=== PATIENT | female | born 1995 | race Caucasian/White ===

== ENCOUNTER 2016-04-29 12:13 | Emergency (ER) | payer MEDICAID ==
[2016-04-29] MEDS ORDERED: IPRATROPIUM/ALBUTEROL 3 ML DEYVIAL IH ONE (12:47)
[2016-04-29] MEDS ORDERED: predniSONE 20 MG TAB PO ONE (12:47)
--- NOTE | 2016-04-29 12:48 | EDPHY ---
H & P Stated Complaint: URI sxs for 3+weeks Source: Patient Exam Limitations: No limitations - Personal History LMP (Females 10-55): Extended Cycle BCP/Inj Current Tetanus Diphtheria and Acellular Pertussis (TDAP): Yes - Medical/Surgical History Hx Asthma: No Hx Chronic Respiratory Disease: No Hx Diabetes: No Hx Cardiac Disease: No Hx Renal Disease: No Hx Cirrhosis: No Hx Alcoholism: No Hx HIV/AIDS: No Hx Splenectomy or Spleen Trauma: No Other PMH: DENIES. - Family History Significant Family History: No pertinent family hx - Social History Smoking Status: Current some day smoker Alcohol Use: Occasionally Drug Use: Marijuana Time Seen by Provider: 04/29/16 12:47 HPI/ROS: HPI: 20-year-old female presents to emergency department with chief concern worsening cough x3 weeks. Onset with cough and rhinorrhea. Reports intermittent shortness of breath. May have had a fever at onset. No fever now. Denies dizziness, facial or tooth pain, sore throat, dysphagia, chest pain, abdominal pain, nausea, vomiting, diarrhea. No aggravating or alleviating factors. No history of asthma or pneumonia. Occasional tobacco use. Occasional marijuana use. Denies significant past medical history. She is a student at [employer]. ROS:10 point review of systems is negative other than as stated in HPI (Iram Suárez) - Social History Additional Social History: [employer] student (Iram Suárez) - Physical Exam Exam: Vital signs stable, reviewed by me, 95% on room air General: Awake, alert, calm, cooperative. No acute distress. Head: Atraumatic. EENT: Conjuctiva mildly injected. TMs intact, without redness or bulging. Nasal mucosa is erythematous with moderate clear discharge. Pharynx mildly erythematous. Uvula midline. No tonsillar abscess or exudates. No frontal or maxillary tenderness to percussion. Respiratory: Breathing unlabored. Lungs with scattered rhonchi and inspiratory and expiratory wheezes bilaterally. CV: Heart rate regular. S1-S2 present. No murmur. GI: Abdomen soft, nontender. Bowel sounds positive x4 quadrants. : Deferred Skin: Warm, dry, intact. No rashes present. Capillary refill brisk. Musculoskeletal: Full ROM all extremities. Neuro: Alert oriented x3. Strength equal in all 4 extremities. (Iram Suárez) Constitutional: Initial Vital Signs Temperature (C) 36.6 C 04/29/16 12:15 Heart Rate 84 04/29/16 12:15 Respiratory Rate 16 04/29/16 12:15 Blood Pressure 108/67 04/29/16 12:15 O2 Sat (%) 95 04/29/16 12:15 O2 Delivery Mode Room Air Allergies/Adverse Reactions: No Known Allergies Allergy (Verified 04/29/16 12:14) Home Medications: Medication Instructions Recorded Depo-Provera 01/20/16 Albuterol Hfa Anes Only [Proair 2 puffs IH QID PRN #1 mdi 04/29/16 Hfa Anes Only] Azithromycin [Zithromax] 250 mg PO DAILY #6 tab 04/29/16 predniSONE 20 mg PO DAILY #15 tablet 04/29/16 Medical Decision Making ED Course/Re-evaluation: Otherwise healthy nontoxic afebrile 20-year-old female presents to emergency department with a worsening cough over 3 weeks. At onset of cough, reports rhinorrhea and fever. Has not had a fever for at least a week. Has intermittent shortness of breath. Lungs are notable for rhonchi and inspiratory and expiratory wheezes. She has no history of asthma or reactive airway disease. Will give a DuoNeb, a prednisone taper, albuterol inhaler, and treat with a course of azithromycin. I will not perform a chest x-ray today as it will not alter my treatment plan. She is a [employer] student however [facility] is not part of her plan so I will have her follow up with primary care as directed in her paperwork. Agrees to do so. She has been counseled regarding symptoms for which she should return. After a DuoNeb wheezes significantly improved, oxygen saturation 97% on room air , patient feeling better. Received 1st dose oral prednisone here. (Iram Suárez) I did not see this patient while she was in the emergency department. However her care was discussed with the nurse practitioner while the patient was in the department. I agree with treatment plan and management (Obdulio Delcid) Differential Diagnosis: Differential diagnosis includes but is not limited to bronchitis, pneumonia, reactive airway disease, asthma (Iram Suárez) - Data Points Medications Given: Discontinued Medications Albuterol/Ipratropium (Duoneb) 3 ml IH EDNOW ONE Stop: 04/29/16 12:48 Last Admin: 04/29/16 13:02 Dose: 3 ml Prednisone (Prednisone) 60 mg PO EDNOW ONE Stop: 04/29/16 12:48 Last Admin: 04/29/16 13:02 Dose: 60 mg Departure - Departure Disposition: Home, Routine, Self-Care Clinical Impression: Bronchitis, Reactive airway disease Condition: Good Instructions: Albuterol (By mouth), Prednisone (By mouth), Acute Bronchitis (ED ), Reactive Airways Disease (ED) Additional Instructions: Plan: Refrain from smoking while symptoms persist Antibiotic as prescribed Use your albuterol inhaler 2 puffs every 4-6 hours for shortness of breath, wheezing. Prednisone taper as prescribed You may use Mucinex/guaifenesin over the counter to help expectorate mucus with your cough. Drink plenty of fluids. Rest. Return to ER if you develop chest pain, difficulty breathing, or difficulty swallowing. Follow up with primary care as directed by early next week--tell the office you are an "ER follow up appointment when you call. Return here promptly for worsening symptoms such as facial/tooth pain, chest pain, shortness of breath, unremitting fever, nausea, vomiting, difficulty swallowing. Referrals: NONE *PRIMARY CARE P,. [Primary Care Provider] - As per Instructions Margie Mills MD [Medical Doctor] - As per Instructions Stand Alone Forms: School Excuse Prescriptions: Albuterol Hfa Anes Only [Proair Hfa Anes Only] 2 puffs IH QID PRN #1 mdi PRN Reason: Short Of Breath/Dyspnea Azithromycin [Zithromax] 250 mg PO DAILY #6 tab predniSONE 20 mg PO DAILY #15 tablet
[2016-04-29 13:49] VITALS: BP 108/56; PULSE 80; RESP 18; TEMP 98.2; O2SAT 98
== END 2016-04-29 13:49 | disposition home or self-care (01) ==
DX: J45.909 Unspecified asthma, uncomplicated (principal); J20.9 Acute bronchitis, unspecified; F17.200 Nicotine dependence, unspecified, uncomplicated